=== PATIENT | female | born 2000 | race African-American/Black ===

== ENCOUNTER 2019-04-23 23:51 | Emergency (ER) | payer BC, SELFPAY ==
[2019-04-24] MEDS ORDERED: Acetaminophen 500 MG TAB ONE (01:22)
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
== END 2019-04-24 01:50 | disposition home or self-care (01) ==
LOC: ERS 23:51
DX: S09.90XA Unspecified injury of head, initial encounter (principal); S60.051A Contusion of right little finger without damage to nail, initial encounter; V89.2XXA Person injured in unspecified motor-vehicle accident, traffic, initial encounter
CPT/HCPCS: 71046